=== PATIENT | female | born 1975 | race Caucasian/White ===

== ENCOUNTER 2021-07-28 14:23 | Outpatient (REF) | payer BC, SELFPAY | END 2021-07-28 14:24 | disposition home or self-care (01) | LOC: HO.LNP 14:23 | PROVIDERS: Internal Medicine; Visit Provider Physician Assistant | DX: Z20.822 Contact with and (suspected) exposure to COVID-19 (principal); J06.9 Acute upper respiratory infection, unspecified; J01.00 Acute maxillary sinusitis, unspecified | CPT/HCPCS: 87635; U0003; U0005 ==

== ENCOUNTER 2023-08-25 15:53 | Outpatient (AMB) | payer BC, SELFPAY ==
[2023-08-25 15:59] VITALS: BP 140/96; PULSE 66; O2SAT 99; BMI 39.5
--- NOTE | 2023-08-25 15:59 | MHC.PC.OV ---
Vital Signs 08/25/23 15:59 08/25/23 16:33 Height 5 ft 5 in Weight 237 lb 2 oz BMI 39.5 BP 140/96 H 128/84 Blood Pressure Location Lt brachial Lt brachial Position Sitting Sitting Pulse 66 Pulse Source Pulse Oximeter Pulse Oximetry (%) 99 Oxygen Delivery Method Room Air Intake Visit Reasons: npv-requesting phy Allergies No Known Allergies Allergy (Verified 08/25/23 16:02) Tobacco use date assessed: 08/25/23 Dental Screening Dental Screen Date: 08/25/23 Did you have a dental visit in the last 12 months?: Yes Did you have a dental problem in the last 6 months where you did not have access to dental care?: No Was dental information given to patient?: Patient has dentist HPI npv-requesting phy HPI Details New pt is here for a PE. Will order labs. 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 sees derm for psoriasis. PFSH Medical History Psoriasis Family History Father Substance use disorder Mental health disorder Social History Housing: Condominium Patient Tobacco Use Status: Never used Tobacco e-Cigarette/Vaping Use: Never Used Second Hand Smoke Exposure: No service: No Current occupational status: employed Current occupation: [employer] Current occupational exposures/hazards: No Cognitive needs: No Hearing needs: No Vision needs: No Questionnaire PHQ-9 Over the last 2 weeks, how often have you been bothered by any of the following problems? 1. Little interest or pleasure in doing things: several days 2. Feeling down, depressed, or hopeless: several days 3. Trouble falling or staying asleep, or sleeping too much: more than half the days 4. Feeling tired or having little energy: more than half the days 5. Poor appetite or overeating: not at all 6. Feeling bad about yourself - or that you are a failure or have let yourself or your family down: not at all 7. Trouble concentrating on things, such as reading the newspaper or watching television: not at all 8. Moving or speaking so slowly that other people could have noticed. Or the opposite - being so fidgety or restless that you have been moving around a lot more than usual: not at all 9. Thoughts that you would be better off or of hurting yourself in some way: not at all Total score: 6 Depression Screening Interpretation: Negative Depression Screening Done: Yes Source: Developed by Drs. Sandoval Go, Evelyn Owen, Andrew Mott and colleagues, with an educational carri from [employer]. Thrive Questionnaire Date Thrive assessed: 08/25/23 I am a: Patient What is your living situation today?: I have a steady place to live Within the past 12 months, did the food you bought not last and you didn't have the money to get more?: Never true Within the past 12 months, did you worry whether your food would run out before you got money to buy more?: Never true Do you have trouble paying for medicines?: No Do you have trouble getting transportation to medical appointments?: No Do you have trouble paying your heating and electricity bill?: No Do you have trouble taking care of your child, family member or friend?: No Do you have trouble with day-to-day activities such as bathing, preparing meals, shopping, managing finances, etc.?: No Are you currently unemployed and looking for a job?: No Are you interested in more education?: No Currently or been in a relationship where the following occur: no concerns reported AUDIT C Alcohol Use Questionnaire (AUDIT-C) 1. How often do you have a drink containing alcohol?: 2-4 times a month 2. How many drinks containing alcohol do you have on a typical day when you are drinking?: 1 or 2 3. How often do you have six or more drinks on one occasion?: Never Total Score: 2 Score Reviewed/Action Taken: Yes UCHE-7 AMB Questionnaire UCHE-7 Date UCHE - 7 assessed: 08/25/23 Feeling nervous, anxious, or on edge: 2 = More than half the days Not being able to stop or control worryin = More than half the days Worrying too much about different things: 2 = More than half the days Trouble relaxin = More than half the days Being so restless that it is hard to sit still: 1 = Several days Becoming easily annoyed or irritable: 3 = Nearly every day Feeling afraid as if something awful might happen: 0 = Not at all Total UCHE-7 score (0-4 normal; 5-9 mild; 10-14 moderate; 15-21 severe): 12 Source: Developed by Drs. Sandoval Go, Evelyn Owen, Andrew Mott and colleagues, with an educational carri from [employer]. UCHE-7 Assessment Billing UCHE-7 Assessment Tool: UCHE-7 Assessment 59793 Review of Systems Const Denies chills and Denies fever(s) Eyes Denies blurry vision ENT Denies vertigo, Denies dizziness and Denies sore throat Card Denies chest pain at rest, Denies chest pain with activity, Denies diaphoresis, Denies dyspnea and Denies dyspnea on exertion Resp Denies cough, Denies dyspnea, Denies dyspnea on exertion and Denies wheezing GI Denies abdominal pain, Denies melena, Denies hematochezia, Denies constipation, Denies diarrhea and Denies loose stools Denies hematuria Musc Denies numbness and Denies tingling Skin/Breast Denies lesions Neuro Denies vertigo, Denies dizziness, Denies numbness and Denies tingling Psych Denies anxiety, Denies depression, Denies homicidal ideation, Denies suicidal ideation and Denies other (substance abuse) Aller/Immun Denies wheezing Physical exam (Primary Care) Vital Signs: Last Vital Signs Pulse 66 08/25/23 15:59 BP 140/96 H 08/25/23 15:59 Pulse Ox 99 08/25/23 15:59 Oxygen Delivery Method Room Air 08/25/23 15:59 BMI result Body Mass Index 39.5 Tobacco/Smoking Status: Tobacco use Status Tobacco use date assessed 08/25/23 08/25/23 16:06 Patient Tobacco Use Status Never used Tobacco 08/25/23 16:06 e-Cigarette/Vaping Use Never Used 08/25/23 16:06 Depression Screening Interpretation: Negative Currently or been in a relationship where the following occur: no concerns reported Const General: cooperative Nutritional Appearance: obese Orientation/consciousness: patient oriented x3 HENMT Head: Yes normal to inspection, Yes normocephalic and Yes atraumatic Ears: TM's normal bilaterally Eyes General: appearance normal, both eyes and all related structures Alignment and Position: alignment normal and position normal Neck Neck: Yes normal visual inspection and Yes no lymphadenopathy Thyroid: Thyroid normal Resp Effort & Inspection: normal respiratory effort Auscultation: clear to auscultation bilaterally Cardio Rate: regular rate Rhythm: regular rhythm Heart sounds: S1 normal heart sound present, S2 normal heart sound present and no murmurs GI Palpation (GI): Soft to palpation and nontender Auscultation: normal bowel sounds Skin Rashes: no rashes Neuro General: patient oriented x3, moves all extremities, no focal motor deficits and deep tendon reflexes 2+ bilaterally Romberg Test: Negative Psych Appearance: grossly normal Mental Status: mental status grossly normal Speech and movement: Normal speech and movement present Affect: normal affect Attitude: cooperative Thought process: Normal thought process present Thought content: Normal thought content present Insight: Good insight present (Psych) Judgement: Good judgement present (Psych) Assessment and Plan Assessment & Plan (1) Physical exam: Code(s): Z00.00 - Encounter for general adult medical examination without abnormal findings (2) Screening for cervical cancer: Code(s): Z12.4 - Encounter for screening for malignant neoplasm of cervix Plan The patient agreed to the use of a registered medical assistant for this encounter. Scribed for TONY Pinto-KAYLAN by Kassandra Craft registered medical assistant, on 08/25/2023 at 16:10 EST Orders: Orders Complete Blood Count Auto Diff Today Z00.00 - Encounter for general adult medical examination without abnormal findings MM screening mammo BI Today Z12.31 - Encounter for screening mammogram for malignant neoplasm of breast Comprehensive Clarissa. Panel Fast Today Z00.00 - Encounter for general adult medical examination without abnormal findings TSH reflex Free T4 Today Z00.00 - Encounter for general adult medical examination without abnormal findings UA CC w/rflx Micro + Cult Today Z00.00 - Encounter for general adult medical examination without abnormal findings Lipid Panel Today Z00.00 - Encounter for general adult medical examination without abnormal findings Referrals DIPPER FISH Referral Z12.4 - Encounter for screening for malignant neoplasm of cervix Coding Level of Care Code New Pt Prev Care 40-64y(15066) Diagnoses Physical exam Z00.00 Screening for cervical cancer Z12.4 Additional Codes UCHE-7 Assessment Billing - UCHE-7 Assessment Tool: UCHE-7 Assessment 57774 ([id number])
[2023-08-25 16:33] VITALS: BP 128/84
== END 2023-08-25 16:47 | disposition home or self-care (01) ==
PROVIDERS: Visit Provider Nurse Practitioner Family
DX: Z00.00 Encounter for general adult medical examination without abnormal findings (principal); Z12.4 Encounter for screening for malignant neoplasm of cervix
CPT/HCPCS: 99386

== ENCOUNTER 2023-11-23 16:28 | Outpatient (AMB) | payer BC, SELFPAY ==
--- NOTE | 2023-11-23 16:30 | A.OFFPC_ITS ---
Vital Signs 11/23/23 16:34 Height 5 ft 5 in Weight 238 lb BMI 39.6 BP 120/90 H Blood Pressure Location Lt brachial Position Sitting Pulse 68 Pulse Source Pulse Oximeter Pulse Oximetry (%) 98 Oxygen Delivery Method Room Air Intake Visit Reasons: Cyst on inner left thigh/Referral to Gen Surg Intake Note: Patient here for cyst on inner left thigh that she went to urgent care. Allergies No Known Allergies Allergy (Verified 11/23/23 16:37) Medication List - Last Reconciled 11/23/23 by BRENDAN Amin sulfamethoxazole-trimethoprim 800-160 mg (Bactrim DS) 1 tab PO BID 5 days Tobacco use date assessed: 11/23/23 Dental Screening Dental Screen Date: 11/23/23 Did you have a dental visit in the last 12 months?: Yes Did you have a dental problem in the last 6 months where you did not have access to dental care?: No Was dental information given to patient?: Patient has dentist HPI Cyst on inner left thigh/Referral to Gen Surg HPI Details Patient reports having a chronic left inner thigh cyst. She reports 2 weeks ago on her left inner thigh she developed a large, tender, warm to touch, cyst. She reports insert to drain after getting out of the shower, she went to an urgent care locally, given doxycycline. Patient reports taking 1 day of the doxycycline and stop it because it made her sick. She reports now, the cyst is much smaller and not as tender. Pt did have a fever approx 1.5 weeks ago,. no longer, no CP, no resp distress, dizziness, or blurred vision PFSH Medical History Psoriasis Family History Father Substance use disorder Mental health disorder Social History Housing: Condominium Patient Tobacco Use Status: Never used Tobacco e-Cigarette/Vaping Use: Never Used Second Hand Smoke Exposure: No service: No Current occupational status: employed Current occupation: [employer] Current occupational exposures/hazards: No Cognitive needs: No Hearing needs: No Vision needs: No Questionnaire PHQ-9 Over the last 2 weeks, how often have you been bothered by any of the following problems? 1. Little interest or pleasure in doing things: not at all 2. Feeling down, depressed, or hopeless: not at all 3. Trouble falling or staying asleep, or sleeping too much: not at all 4. Feeling tired or having little energy: not at all 5. Poor appetite or overeating: not at all 6. Feeling bad about yourself - or that you are a failure or have let yourself or your family down: not at all 7. Trouble concentrating on things, such as reading the newspaper or watching television: not at all 8. Moving or speaking so slowly that other people could have noticed. Or the opposite - being so fidgety or restless that you have been moving around a lot more than usual: not at all 9. Thoughts that you would be better off or of hurting yourself in some way: not at all Total score: 0 Depression Screening Interpretation: Negative Depression Screening Done: Yes [id number] - PHQ-9 Billing: Yes Source: Developed by Drs. Sandoval Go, Evelyn Owen, Andrew Mott and colleagues, with an educational carri from [employer]. Thrive Questionnaire Date Thrive assessed: 11/23/23 I am a: Patient What is your living situation today?: I have a steady place to live Within the past 12 months, did the food you bought not last and you didn't have the money to get more?: Never true Within the past 12 months, did you worry whether your food would run out before you got money to buy more?: Never true Do you have trouble paying for medicines?: No Do you have trouble getting transportation to medical appointments?: No Do you have trouble paying your heating and electricity bill?: No Do you have trouble taking care of your child, family member or friend?: No Do you have trouble with day-to-day activities such as bathing, preparing meals, shopping, managing finances, etc.?: No Are you currently unemployed and looking for a job?: No Are you interested in more education?: No UCHE-7 AMB Questionnaire UCHE-7 Date UCHE - 7 assessed: 11/23/23 Feeling nervous, anxious, or on edge: 0 = Not at all Not being able to stop or control worryin = Not at all Worrying too much about different things: 0 = Not at all Trouble relaxin = Not at all Being so restless that it is hard to sit still: 0 = Not at all Becoming easily annoyed or irritable: 0 = Not at all Feeling afraid as if something awful might happen: 0 = Not at all Total UCHE-7 score (0-4 normal; 5-9 mild; 10-14 moderate; 15-21 severe): 0 Source: Developed by Drs. Sandoval Go, Evelyn Owen, Andrew Mott and colleagues, with an educational carri from [employer]. UCHE-7 Assessment Billing UCHE-7 Assessment Tool: UCHE-7 Assessment [id number] Review of Systems Const Reports as per HPI Physical exam (Primary Care) Vital Signs: Last Vital Signs Pulse 68 11/23/23 16:34 BP 120/90 H 11/23/23 16:34 Pulse Ox 98 11/23/23 16:34 Oxygen Delivery Method Room Air 11/23/23 16:34 BMI result Body Mass Index 39.6 Tobacco/Smoking Status: Tobacco use Status Tobacco use date assessed 11/23/23 11/23/23 16:39 Patient Tobacco Use Status Never used Tobacco 11/23/23 16:31 e-Cigarette/Vaping Use Never Used 11/23/23 16:31 Depression Screening Interpretation: Negative Thrive Assessment: Date of Thrive Assessment Date Thrive assessed 08/25/23 11/23/23 16:31 Const General: cooperative Nutritional Appearance: obese Orientation/consciousness: patient oriented x3 Resp Auscultation: clear to auscultation bilaterally Cardio Rate: regular rate Rhythm: regular rhythm Heart sounds: S1 normal heart sound present, S2 normal heart sound present and no murmurs Skin Other: (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 Neuro General: patient oriented x3 Psych Appearance: grossly normal Mental Status: mental status grossly normal Speech and movement: Normal speech and movement present Affect: normal affect Attitude: cooperative Thought process: Normal thought process present Thought content: Normal thought content present Insight: Good insight present (Psych) Judgement: Good judgement present (Psych) Assessment and Plan Assessment & Plan (1) Abscess: Code(s): L02.91 - Cutaneous abscess, unspecified Medications: New sulfamethoxazole-trimethoprim 800-160 mg (Bactrim DS) 1 tab PO BID 5 days 10 tabs 0RF Coding Level of Care Code Est Pt Level 3 (17562) Diagnoses Abscess L02.91 Additional Codes UCHE-7 Assessment Billing - UCHE-7 Assessment Tool: UCHE-7 Assessment [id number] ([id number])
[2023-11-23 16:34] VITALS: BP 120/90; PULSE 68; O2SAT 98; BMI 39.6
== END 2023-11-23 17:00 | disposition home or self-care (01) ==
PROVIDERS: PCP Nurse Practitioner Family; Visit Provider Nurse Practitioner Family
DX: L02.91 Cutaneous abscess, unspecified (principal)
CPT/HCPCS: 99213

== ENCOUNTER 2024-02-27 13:58 | Outpatient (AMB) | payer BC, SELFPAY ==
--- NOTE | 2024-02-27 14:02 | A.OFFPC_ITS ---
Vital Signs 02/27/24 14:04 Height 5 ft 5 in Weight 236 lb BMI 39.3 BP 120/82 Blood Pressure Location Lt brachial Position Sitting Pulse 84 Pulse Source Pulse Oximeter Pulse Oximetry (%) 98 Oxygen Delivery Method Room Air Intake Visit Reasons: 6 month follow up Intake Note: Patient here to discuss possible sinus infection, pre menopause symptoms. Allergies No Known Allergies Allergy (Verified 02/27/24 16:07) Medication List - Last Reconciled 02/27/24 by TONY Amin-KAYLAN amoxicillin-pot clavulanate 875-125 mg 1 tab PO BID 10 days Tobacco use date assessed: 11/23/23 Dental Screening Dental Screen Date: 11/23/23 HPI 6 month follow up HPI Details sinusitis since 1.5 weeks now. Pt reports cough, with ear pressure, denies any fevers, chills, N/V, blurred vision. #2 abnormal vag bleeding, peroids sometimes come (though very irregular), more heavy than usual. She has a upcoming founder chairman and chief creative officer appt in [place], though has seen someone recently who check for only anemia (which appeared neg). A pelvic US was also performed, pt showed me results from her phone, does not appear to be any abnormalities. Pt will call her newly scheduled founder chairman and chief creative officer to get in sooner than Aug. I will recheck a CBC and also order a FSH, LH, and estradiol. PFSH Medical History Psoriasis Family History Father Substance use disorder Mental health disorder Social History Housing: Condominium Patient Tobacco Use Status: Never used Tobacco e-Cigarette/Vaping Use: Never Used Second Hand Smoke Exposure: No service: No Current occupational status: employed Current occupation: [employer] Current occupational exposures/hazards: No Cognitive needs: No Hearing needs: No Vision needs: No Questionnaire Thrive Questionnaire Date Thrive assessed: 11/23/23 UCHE-7 AMB Questionnaire UCHE-7 Date UCHE - 7 assessed: 11/23/23 Source: Developed by Drs. Sandoval Go, EvelynAndrew Verma and colleagues, with an educational carri from [employer]. Physical exam (Primary Care) Vital Signs: Last Vital Signs Pulse 84 02/27/24 14:04 BP 120/82 02/27/24 14:04 Pulse Ox 98 02/27/24 14:04 Oxygen Delivery Method Room Air 02/27/24 14:04 BMI result Body Mass Index 39.3 Tobacco/Smoking Status: Tobacco use Status Tobacco use date assessed 11/23/23 02/27/24 14:03 Patient Tobacco Use Status Never used Tobacco 02/27/24 14:03 e-Cigarette/Vaping Use Never Used 02/27/24 14:03 Thrive Assessment: Date of Thrive Assessment Date Thrive assessed 11/23/23 02/27/24 14:03 Resp Effort & Inspection: normal respiratory effort Auscultation: clear to auscultation bilaterally Cardio Rate: regular rate Rhythm: regular rhythm Heart sounds: S1 normal heart sound present, S2 normal heart sound present and no murmurs Assessment and Plan Assessment & Plan (1) Irregular menses: Code(s): N92.6 - Irregular menstruation, unspecified Orders: Orders Follicle Stimulating Hormone Today N92.6 - Irregular menstruation, unspecified Lutenizing Hormone Today N92.6 - Irregular menstruation, unspecified Estrogen Today N92.6 - Irregular menstruation, unspecified Estradiol Ultra Sensitive Today N92.6 - Irregular menstruation, unspecified Medications: New amoxicillin-pot clavulanate 875-125 mg 1 tab PO BID 10 days 20 tabs 0RF Coding Level of Care Code Est Pt Level 3 (40071) Diagnoses Irregular menses N92.6
[2024-02-27 14:04] VITALS: BP 120/82; PULSE 84; O2SAT 98; BMI 39.3
== END 2024-02-27 16:03 | disposition home or self-care (01) ==
PROVIDERS: PCP Nurse Practitioner Family; Visit Provider Nurse Practitioner Family
DX: N92.6 Irregular menstruation, unspecified (principal)
CPT/HCPCS: 99213

== ENCOUNTER 2024-05-24 10:11 | Outpatient (AMB) | payer BC, SELFPAY ==
[2024-05-24 10:14] VITALS: BP 134/88; BMI 39.6
--- NOTE | 2024-05-24 10:14 | A.OFFVIS_ITS ---
Vital Signs 05/24/24 10:14 Height 5 ft 5 in Weight 238 lb BMI 39.6 BP 134/88 Intake Visit Reasons: New patient Annual Intake Note: Last pap long time ago per NEPA 2011, EMB 2019 No mammo Patient wants to discuss heavy bleeding Entry Level Automotive Technician: Entry Level Automotive Technician Present (Mary) Allergies No Known Allergies Allergy (Verified 05/24/24 10:16) Is last menstrual period known: Yes (spotted two weeks before) Last menstrual period: 05/19/24 HPI Comments Details: She is a premenopausal woman presenting for new patient annual examination. She defers her annual exam today due to her heavy menstrual bleeding. She reports onset of irregular bleeding since early 2019. Records from [facility] are not available for her visit today. Her cycles have skipped and also then prolonged up to 53 +days. She had a progesterone IUD inserted in 2022 which was removed within 3 months due to her side effects which include hives, wheezing, skin changes including psoriasis, edema and weight gain. Following the removal of the IUD she had seen a Director Of Medical Review provider and was told she was having perimenopausal changes, was placed on different diet changes including elimination of gluten, additionally added tea's to help her immune system/hormones improve. She reports a previous endometrial biopsy (2019) was negative. She denies any pelvic pain. She was last seen this year in the spring time she reports and was told by the provider to just watch the bleeding for now. She has never had a mammogram. [facility] Medical History (Updated 05/24/24 @ 11:46 by Ce Garcia CNM) Psoriasis Surgical History (Updated 05/24/24 @ 10:19 by SAMIRA Vaughan) Hx of tonsillectomy Hx of wisdom tooth extraction Family History (Updated 05/24/24 @ 10:19 by SAMIRA Vaughan) Father Substance use disorder Mental health disorder Maternal Aunt Ovarian cancer Social History Housing: Condominium Patient Tobacco Use Status: Never used Tobacco e-Cigarette/Vaping Use: Never Used Second Hand Smoke Exposure: No service: No Current occupational status: employed Current occupation: [employer] Current occupational exposures/hazards: No Cognitive needs: No Hearing needs: No Vision needs: No Female Reproductive History Menstrual Duration of menses: >10 days Date of last menstrual period: 05/19/24 Total pregnancies: 3 Full term: 1 Number of Living Children: 1 Ab spontaneous: 2 Review of Systems Const All systems reviewed & are unremarkable except as noted in HPI and below Reports as per HPI Eyes Reports no additional complaints ENT Reports no additional complaints Card Reports no additional complaints Resp Reports no additional complaints GI Reports as per HPI and Reports no additional complaints Reports as per HPI Musc Reports no additional complaints Skin/Breast Reports as per HPI Neuro Reports no additional complaints Psych Reports no additional complaints Endo Reports no additional complaints Jayme/Lymph Reports no additional complaints Aller/Immun Reports no additional complaints Physical Exam Vital Signs: Last Vital Signs BP 134/88 05/24/24 10:14 BMI result Body Mass Index 39.6 Const General: cooperative, healthy appearing, no acute distress, well developed and alert Orientation/consciousness: patient oriented x3 Neuro General: patient oriented x3 Cognition (Neuro): normal cognition Psych Appearance: well kempt Attitude: cooperative Thought process: Normal thought process present Assessment & Plan Assessment & Plan (1) Abnormal uterine bleeding (AUB): Code(s): N93.9 - Abnormal uterine and vaginal bleeding, unspecified Category: Medical Plan Discussed: Release records to [facility] for all registered nurse surgical services notes including pathology, ultrasound, labs. Workup for abnormal uterine bleeding to include ultrasound patient reports recently done, lab work-patient agrees to go and have her labs done that were ordered by her primary care and require her to be fasting. Advised if periods are heavier prolonged she feels any lightheadedness, dizziness, shortness of breath to seek medical emergency care at an ED im mediately. Encouraged good hydration. Use of ibuprofen and Tylenol along with a heating pad reviewed. Consider treatment options once evaluation is complete to include hormones, uterine ablation, or hysterectomy. Due to the hives with the progesterone IUD hormones may not be an option, review of medical records requested. Patient verbalizes understanding and agrees to the plan of care. She was given opportunity to ask questions and all questions were answered to the best of my ability. This note is constructed using voice recognition software. While every effort has been made to ensure accuracy, guest relations associate errors may have been included. Coding Level of Care Code New Pt Level 3 (22603) Diagnoses Abnormal uterine bleeding (AUB) N93.9
== END 2024-05-24 10:53 | disposition home or self-care (01) ==
LOC: HO.HWS 10:11
PROVIDERS: PCP Nurse Practitioner Family; Visit Provider Advanced Practice Midwife
DX: N93.9 Abnormal uterine and vaginal bleeding, unspecified (principal)
CPT/HCPCS: 99203

== ENCOUNTER → 2024-05-24 10:11 | Outpatient (BNVA) | payer BC, SELFPAY | PROVIDERS: PCP Nurse Practitioner Family; Visit Provider Advanced Practice Midwife ==

== ENCOUNTER 2025-02-12 08:03 | Outpatient (AMB) | payer BC, SELFPAY ==
[2025-02-12 08:05] VITALS: BP 150/100; PULSE 68; TEMP 36.8; O2SAT 98
--- NOTE | 2025-02-12 08:05 | AM.OFFWIN_ITS ---
Intake Vital Signs 02/12/25 08:05 02/12/25 08:26 Weight 244 lb BP 150/100 H 150/96 H Blood Pressure Location Rt brachial Rt brachial Position Sitting Sitting Pulse 68 Pulse Source Pulse Oximeter Temp 98.2 F Temp Source Oral Pulse Oximetry (%) 98 Oxygen Delivery Method Room Air Intake Visit Reasons: EP-cough, wheezing, mucus, headaches Intake Note: Patient here for cough, wheezing and headaches that has been present for over 1 week and was diagnosed with pneumonia at a different urgent care but is still not feeling well. . Patient Tobacco Use Status: Never used Tobacco Allergies No Known Allergies Allergy (Verified 02/12/25 08:20) Medication List - Last Reconciled 02/12/25 by BRENDAN Hyman No Known Home Meds Do you need a note to return to daycare/school/sports/work: Yes HPI HPI Comments History of Present Illness Details History - The patient is a 49 year old female pr esenting with persistent symptoms of pneumonia, including coughing and wheezing. - Community-acquired pneumonia was diagn osed at another urgent care center by chest X-ray, and treatment included oral Prednisone 20 mg daily and Levofloxacin 500 mg daily, both for a 5-day course. - The patient completed the antibiotic r egimen yesterday with improvement in symptoms; however cont w/ cough and feeling persistent coughing - No consistent fever is present, but ep isodes do reach 100?F and improve following Tylenol use. Intermittent fever last noted the day before this visit. - Severe sinus infection and acute otiti s media also diagnosed, accompanied by a history of blackened ear indicating possible infection. 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 Reports difficulty in reducing workload. - Blood pressure reads high during visit s, potentially exacerbated by anxiety and exacerbated by decongestant usage prior to this visit. She is not on anti- htn, admits white coat HTN. Denies cardiac sx Physical Exam General: Awake, alert. No apparent distress. Eyes: Sclera and conjunctiva clear bilaterally Cardiovascular: Regular rate and rhythm, blood pressure noted to be 150/96 Respiratory: Clear to auscultation bilaterally, dry cough occassional w/o distress Discussion Notes During the consultation, I confirmed the patient's concerns regarding persistent symptoms of pneumonia. I explained the typical course of pneumonia recovery. We discussed that resting as much as possible is crucial but understood her work constraints. I advised the continued use of the prescribed inhaler to reduce lung inflammation. Emphasis was placed on the importance of monitoring symptoms such as persistent cough with drenching night sweats or unrelenting fever. I informed the patient that her high blood pressure reading is likely secondary to her illness and stress rather than a separate chronic condition, but will need follow-up once recovered. The patient was advised to avoid decongestants due to their contribution to hypertension. I addressed the situation surrounding her work responsibilities and acknowledged her need for further rest, issuing a work excuse until Tuesday. A blood pressure recheck was recommended when feeling better, coordinating with our nurse navigator if elevations persist. Consent was obtained for the plan, including scheduling follow-up appointments as necessary. Assessment and Plan 1. Community-Acquired Pneumonia: The nate colmenares was diagnosed with community- acquired pneumonia confirmed by chest X-ray, and treatment with Levofloxacin was completed. Persistent symptoms include cough. I advise continuing inhaler use. Rest is necessary, though challenging due to work constraints. 2. Elevated BP: Temporarily elevated angelia dings noted, likely attributed to current illness and stress. Investigation and management will focus on determining persistence post-recovery. Patient Instructions - Continue using your prescribed inhaler as directed. - Avoid decongestants given their effect on blood pressure. - Rest as much as possible and monitor f or increased symptoms. - Use Tylenol for any fever if needed. - Contact healthcare provider if coughin g worsens, fever persists, or if night sweats occur. - Follow up for blood pressure check onc health improves. - Stay out of work until cleared to retu rn on Tuesday. - Nurse mariano BP recheck in 2 weeks. Consent Patient was informed and verbally consented to the use of an ambient scribe for clinic note documentation during this visit. Total time spent caring for the patient today was 30 minutes. This includes time spent before the visit reviewing the chart, time spent during the visit, and time spent after the visit on documentation, reviewing laboratory results, diagnostic imaging, medications, performing a medically necessary evaluation, counseling on diagnoses, care coordination, ordering appropriate tests, ordering appropriate medications, review of tests performed by other providers, reporting test results with the patient, communication with other healthcare providers. [facility] Medical History (Updated 02/12/25 @ 08:38 by Elsy Solo, [facility]) Psoriasis Surgical History (Updated 05/24/24 @ 10:19 by SAMIRA Vaughan) Hx of tonsillectomy Hx of wisdom tooth extraction Family History (Updated 05/24/24 @ 10:19 by SAMIRA Vaughan) Father Substance use disorder Mental health disorder Maternal Aunt Ovarian cancer Social History Housing: Condominium Patient Tobacco Use Status: Never used Tobacco e-Cigarette/Vaping Use: Never Used Second Hand Smoke Exposure: No service: No Current occupational status: employed Current occupation: [employer] Current occupational exposures/hazards: No Cognitive needs: No Hearing needs: No Vision needs: No Physical Exam Vital Signs: Last Vital Signs Temp 98.2 F 02/12/25 08:05 Pulse 68 02/12/25 08:05 BP 150/100 H 02/12/25 08:05 Pulse Ox 98 02/12/25 08:05 Oxygen Delivery Method Room Air 02/12/25 08:05 Assessment & Plan Assessment & Plan (1) Pneumonia: Code(s): J18.9 - Pneumonia, unspecified organism Qualifiers: Laterality: unspecified laterality Lung location: unspecified part of lung Pneumonia type: due to unspecified organism Qualified Code(s): J18.9 - Pneumonia, unspecified organism (2) Elevated blood pressure reading without diagnosis of hypertension: Code(s): R03.0 - Elevated blood-pressure reading, without diagnosis of hypertension Plan . Coding Level of Care Code Est Pt Level 4 (46926) Diagnoses Pneumonia due to infectious organism, unspecified laterality, unspecified part of lung J18.9 Laterality: unspecified laterality Lung location: unspecified part of lung Pneumonia type: due to unspecified organism Elevated blood pressure reading without diagnosis of hypertension R03.0
[2025-02-12 08:26] VITALS: BP 150/96
== END 2025-02-12 08:43 | disposition home or self-care (01) ==
PROVIDERS: PCP Nurse Practitioner Family; Visit Provider Nurse Practitioner Family
DX: J18.9 Pneumonia, unspecified organism (principal); R03.0 Elevated blood-pressure reading, without diagnosis of hypertension

== ENCOUNTER 2025-08-27 13:56 | Outpatient (REF) | payer BC, SELFPAY ==
[2025-08-27 16:15] LABS: MANUAL DIFF FLAG NO
[2025-08-27 16:18] LABS: Appearance Urine Clear; Glucose Urine UA Negative (Negative); PH 6.0 (5.0-9.0); Specific Gravity - Urine <= 1.005 (1.005-1.025)
[2025-08-27 16:37] LABS: Hematocrit 39.1 % (37.0-47.0); Hemoglobin 12.6 g/dl (12.0-16.0); Imm Gran Abs Auto 0.03 X10*3/uL (0.00-0.03); Imm Gran Pct Auto 0.3 % (0.0-0.4); Lymphocytes Absolute Auto 2.7 X10*3/uL (1.2-4.9); Mean Corpuscular HGB Conc 32.2 g/dl (31.0-35.0); Mean Corpuscular Hemoglobin 28.7 pg (27.0-33.0); Mean Corpuscular Volume 89.1 fL (80.0-98.0); NRBC Abs Auto 0.000 X10*3/uL (0.0-0.012); NRBC Pct Auto 0.0 /100WBC (0.0-0.2); Platelet Count 296 X10*3/uL (160-400); Red Blood Count 4.39 X10*6/uL (4.20-5.50); White Blood Count 10.1 X10*3/uL (4.8-10.8)
--- OUTSIDE RECORDS SUMMARY | 2025-08-27 16:55 | XMS_ITS | Clinical Summary ---
Author Organization [facility] Address [address] [facility] [address] [place] [phone] Phone Care Team Providers Care Statistical Machine Servicer Name Role Phone Anuja Meeks MD Primary Care Provider Medications No known medications Active Problems No known active problems Social History Tobacco Use Types Packs/Day Years Used Date Smoking Tobacco: Never Assessed Education Answer Date Recorded Are you interested in more education? Not on rodolof e 04/14/2023 Are you concerned about learning? Not on file 04/14/2023 No 04/14/2023 No 04/14/2023 Digital Access Answer Date Recorded No 04/14/2023 No 04/14/2023 Reliable internet access at home? Not on file 04/14/2023 Device with a working camera? Not on file Comments Unknown Sex and Gender Information Value Date Recorded Sex Assigned at Not on file Legal Sex Female 8:37 AM EDT Gender Identity Not on file Sexual Orientation Not on file Plan of Treatment Health Maintenance Due Date Last Done Comments LIPID PANEL 1976 DEPRESSION SCREENING 1988 SMOKING Hx and SMOKELESS TOBACCO SCREENING 1989 HEPATITIS C SCREENING 1994 HIV ONE-TIME SCREENING (18-6 5 YEARS) 1994 PAP SMEAR 1997 MAMMOGRAM 2016 Adult Td,Tdap Booster 07/10/2019 07/10/2009 COLOGUARD 2021 COLONOSCOPY 2021 COLORECTAL CANCER SCREENING 2021 FIT TEST 2021 FOBT 2021 SIGMOIDOSCOPY 2021 VIRTUAL COLONOSCOPY 2021 INFLUENZA VACCINE (#1) 2025 1, 08/03/2009, 09/20/2006 COVID-19 VACCINE (2024-2 6 season) 2025 03/14/2021, 02/21/2021 HEPATITIS A VACCINES Aged Out No long er eligible based on patient's age to complete this topic HIB VACCINES Aged Out No longer eligi ble based on patient's age to complete this topic MENINGOCOCCAL VACCINES (ACWY) Aged Out No longer eligible based on patient's age to complete this topic MENINGOCOCCAL VACCINES (B) Aged Out N o longer eligible based on patient's age to complete this topic PNEUMOCOCCAL VACCINES (0-49 years) Aged Out No longer eligible b ased on patient's age to complete this topic Medical Devices Not on file Insurance [facility] [place] [address] [place] [address] [place] [address] [facility] Care Teams Statistical Machine Servicer Relationship Specialty Start Date End Date Anuja Meeks MD [address] [facility] [address] [place] [phone] PCP - General Internal Medicine 04/14/23 Additional Source Comments The information contained in this document represents components of the legal health record. It is not the complete legal health record.[facility]
== END 2025-08-27 13:57 | disposition home or self-care (01) ==
LOC: HO.HMGCLDS 13:56
PROVIDERS: PCP Nurse Practitioner Family; Visit Provider Nurse Practitioner Family
DX: Z00.00 Encounter for general adult medical examination without abnormal findings (principal); E55.9 Vitamin D deficiency, unspecified; Z13.29 Encounter for screening for other suspected endocrine disorder
CPT/HCPCS: 36415; 81003; 82306; 84443; 85025

== ENCOUNTER 2025-08-28 15:15 | Outpatient (AMB) | payer BC, SELFPAY ==
[2025-08-28 15:19] VITALS: PULSE 72; TEMP 36.8; O2SAT 98; BMI 40.8
--- NOTE | 2025-08-28 15:19 | AM.OFFWIN_ITS ---
Intake Vital Signs 08/28/25 15:19 Height 5 ft 5 in Weight 245 lb BMI 40.8 Pulse 72 Pulse Source Pulse Oximeter Temp 98.3 F Temp Source Oral Pulse Oximetry (%) 98 Oxygen Delivery Method Room Air Intake Visit Reasons: EP Ear pain Intake Note: pt presents with ongoing bilateral ear pain/infection x1 mo. a month ago- abx Augmentin. returned to - abx zpak, 5 days ago lost hearing in LT ear and developed yeast type fluid. back to -doxycycline (nausea)-they called in cipro (currently on day 5), zyrtec, flonase and prednisone (didn't take) Patient Tobacco Use Status: Never used Tobacco Allergies doxycycline Adverse Reaction (Mild, Verified 08/28/25 15:24) Nausea Do you need a note to return to daycare/school/sports/work: No HPI HPI Comments History of Present Illness Details History - The patient is a 50-year-old female pr esenting with persistent ear infection symptoms and sinus issues. - The patient has been experiencing ear infection symptoms for over a month, initially treated with Augmentin for 10 days without improvement. - The patient was subsequently prescribe d a Z-Jerry, which provided slight relief, but symptoms recurred, leading to a prescription of doxycycline, which caused severe nausea. - The patient was then switched to cipro floxacin 2 days ago. - Today, the patient reports sinus pain and pressure, with nasal congestion and popping sounds in the ear upon swallowing. - The patient has been using Flonase twi ce daily, which provides some relief. 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 - She denies fevers, chills, cough, adrien estion or shortness of breath - She endorses extreme fatigue. Physical Exam General: Cooperative, healthy appearing, comfortable and no acute distress Orientation/consciousness: Patient oriented x3 Limitations: No limitations Head: Normal to inspection Ears: Hearing grossly normal bilaterally, external ears normal. EAC left with tenderness and a small pimple, EAC right is normal, TM's normal bilaterally Nose: Normal external nose present, Normal nares present and No nasal discharge present Face and sinus: Normal facial exam and Yes sinuses nontender Mouth: Normal oral and palatal mucosa present and moist mucous membranes Throat: Yes tonsils normal, Yes uvula midline. Posterior oropharynx erythema, no exudates Eyes: Appearance normal, both eyes and all related structures Neck: Normal visual inspection, full ROM Respiratory: Normal respiratory effort, able to speak in complete sentences Skin: No rashes or lesions noted Neuro: Patient oriented x3 Extremities: Normal to inspection and Yes no clubbing, cyanosis or edema Had Patt Li PA-C examine ear and she agrees with my assessment. Review of Systems - ENT: Reports ear pain, sinus pressure, and nasal congestion. Denies cough, congestion, or fever. - General: Reports fatigue. Denies short ness of breath or sneezing. All systems reviewed and are unremarkable except as noted in HPI [facility] Medical History (Updated 08/28/25 @ 16:00 by Amanda Feng PA-C) Psoriasis Surgical History (Updated 05/24/24 @ 10:19 by SAMIRA Vaughan) Hx of tonsillectomy Hx of wisdom tooth extraction Family History (Updated 05/24/24 @ 10:19 by SAMIRA Vaughan) Father Substance use disorder Mental health disorder Maternal Aunt Ovarian cancer Social History Housing: Condominium Patient Tobacco Use Status: Never used Tobacco e-Cigarette/Vaping Use: Never Used Second Hand Smoke Exposure: No service: No Current occupational status: employed Current occupation: [employer] Current occupational exposures/hazards: No Cognitive needs: No Hearing needs: No Vision needs: No Physical Exam Vital Signs: Last Vital Signs Temp 98.3 F 08/28/25 15:19 Pulse 72 08/28/25 15:19 Pulse Ox 98 08/28/25 15:19 Oxygen Delivery Method Room Air 08/28/25 15:19 BMI result Body Mass Index 40.8 Assessment & Plan Assessment & Plan (1) Otalgia, left ear: Code(s): H92.02 - Otalgia, left ear Plan: Plan Patient was informed and verbally consented to the use of an ambient scribe for clinic note documentation during this visit. - VSS, pt well appearing and PE remarkable for pimple and tenderness of EAC left. TMs normal with no evidence of infection. - Discontinue ciprofloxacin as there is no current evidence of bacterial infection. - Prescribe steroid ear drops to reduce inflammation in the ear canal. - Continue using Flonase nasal spray twice daily to alleviate sinus congestion. - Prescribe a short course of oral prednisone 20mg x 5 days to reduce sinus inflammation and alleviate pain. - Conduct a full viral panel to identify any underlying viral infection. - Advise rest and symptomatic treatment as needed. Orders: Orders Resp Pathogen Panel - [facility] Today J06.9 - Acute upper respiratory infection, unspecified Medications: New prednisone 20 mg PO DAILY 5 tabs 0RF hydrocortisone-acetic acid 1-2 % 4 drps otic (ear) left TID 10 mL 0RF 5 days Coding Level of Care Code Est Pt Level 3 (87906) Diagnoses Otalgia, left ear H92.02
--- OUTSIDE RECORDS SUMMARY | 2025-08-28 18:49 | XMS_ITS | Clinical Summary ---
Author Organization [facility] Address [address] [facility] [address] [place] [id number] Phone Care Team Providers Care Vest Tailor Name Role Phone Anuja Meeks MD Primary Care Provider Medications No known medications Active Problems No known active problems Social History Tobacco Use Types Packs/Day Years Used Date Smoking Tobacco: Never Assessed Education Answer Date Recorded Are you interested in more education? Not on rodolfo e 04/14/2023 Are you concerned about learning? [...] topic Medical Devices Not on file Insurance [facility] [address] [address] [place] [address] [facility] Care Teams Vest Tailor Relationship Specialty Start Date End Date Anuja Meeks MD [address] [facility] [address] [place] [phone] PCP - General Internal Medicine 04/14/23 Additional Source Comments The information contained in this document represents components of the legal health record. It is not the complete legal health record.[facility]
--- OUTSIDE RECORDS SUMMARY | 2025-08-28 18:49 | XMS_ITS ---
Author Name [facility] Organization Unknown Care Team Organization Name Specialty Phone Email Start Date End Da te [facility] Anuja Farrukhanti Primary [facility] 11/22/2022 07/02/20 [facility] Termed, PROVIDER Primary Care 09/21/202206/14
== END 2025-08-28 16:07 | disposition home or self-care (01) ==
PROVIDERS: PCP Nurse Practitioner Family; Visit Provider Physician Assistant
DX: H92.02 Otalgia, left ear (principal)

== ENCOUNTER 2025-08-28 15:15 | Outpatient (REF) | payer BC, SELFPAY ==
[2025-08-29 11:40] LABS: Chlamydia pneumoniae PCR Not Detected (Not Detect.); Coronavirus 229E PCR Not Detected (Not Detect.); Coronavirus HKU1 PCR Not Detected (Not Detect.); Coronavirus NL63 PCR Not Detected (Not Detect.); Coronavirus OC43 PCR Not Detected (Not Detect.); RSV PCR Not Detected (Not Detect.); Rhino/Enterovirus PCR Detected (Not Detect.)
[2025-08-29 11:48] LABS: Influenza A H1 PCR Not Detected (Not Detect.); Influenza A H1-2009 PCR Not Detected (Not Detect.); Influenza A H3 PCR Not Detected (Not Detect.); SARS-CoV-2 PCR Not Detected (Not Detect.)
== END 2025-08-28 15:16 | disposition home or self-care (01) ==
LOC: HO.LAB 15:15
PROVIDERS: Physician Assistant; PCP Nurse Practitioner Family
DX: H92.02 Otalgia, left ear (principal); J06.9 Acute upper respiratory infection, unspecified; J34.89 Other specified disorders of nose and nasal sinuses; R09.81 Nasal congestion
CPT/HCPCS: 87633

== ENCOUNTER 2025-08-29 06:37 | Outpatient (AMB) | payer BC, SELFPAY ==
--- NOTE | 2025-08-29 07:37 | A.OFFPC_ITS ---
Intake Visit Reasons: discuss lab results Allergies doxycycline Adverse Reaction (Mild, Verified 08/28/25 15:24) Nausea Medication List - Last Reconciled 08/29/25 by Jose Anne [facility] cetirizine 10 mg PO DAILY ciprofloxacin HCl 500 mg PO BID fluticasone propionate 50 mcg/actuation 2 sprays intranasal DAILY hydrocortisone-acetic acid 1-2 % 4 drps otic (ear) left TID 5 days ondansetron 4 mg PO BID prednisone 20 mg PO DAILY Tobacco use date assessed: 11/23/23 Dental Screening Dental Screen Date: 11/23/23 HPI discuss lab results HPI Details History of Present Illness The patient is a 50-year-old female presenting for a telehealth follow-up to discuss recent laboratory results and blood pressure management. She reports a history of white coat syndrome, with elevated blood pressure readings in clinical settings but normal readings at home, typically in the 120s to 130s over 70s to low 80s. She denies any chest pain, shortness of breath, dizziness, or headaches. The patient is actively working on weight management, having lost about 8 pounds through dietary adjustments. She maintains an active lifestyle, achieving approximately 10,000 steps daily at work. There is a consideration of perimenopausal symptoms, which may impact her weight loss efforts. Review of Systems - Cardiovascular: Denies chest pain, ort hopnea, or syncope. - Respiratory: Denies dyspnea, cough, or wheezing. - Neurological: Denies dizziness or head aches. Plan 1. White Coat Syndrome The patient will continue to monitor her blood pressure at home, as she reports normal readings outside of clinical settings. 2. Perimenopausal Symptoms The patient is advised to continue monitoring her symptoms, as they may affect her weight management efforts. 3. Preventative Care: Weight Management The patient is encouraged to maintain her dietary adjustments and active lifestyle to support further weight loss. Discussion Notes During the visit, we discussed the patient's blood pressure management, emphasizing the importance of home monitoring due to her history of white coat syndrome. We also addressed her weight management progress and the potential impact of perimenopausal symptoms on her efforts. Patient Instructions - Continue monitoring blood pressure at home and report any significant changes. - Maintain dietary adjustments and physi vivian activity to support weight loss. - Monitor perimenopausal symptoms and di scuss any concerns during the next visit. [facility] Medical History Psoriasis Surgical History Hx of tonsillectomy Hx of wisdom tooth extraction Family History Father Substance use disorder Mental health disorder Maternal Aunt Ovarian cancer Social History Housing: Condominium Patient Tobacco Use Status: Never used Tobacco e-Cigarette/Vaping Use: Never Used Second Hand Smoke Exposure: No service: No Current occupational status: employed Current occupation: [employer] Current occupational exposures/hazards: No Cognitive needs: No Hearing needs: No Vision needs: No Questionnaire Thrive Questionnaire Date Thrive assessed: 08/25/25 I am a: Patient What is your living situation today?: I have a steady place to live Within the past 12 months, did the food you bought not last and you didn't have the money to get more?: I choose not to answer this question Within the past 12 months, did you worry whether your food would run out before you got money to buy more?: I choose not to answer this question Do you have trouble paying for medicines?: No Do you have trouble getting transportation to medical appointments?: No Do you have trouble paying your heating and electricity bill?: No Do you have trouble taking care of your child, family member or friend?: No Do you have trouble with day-to-day activities such as bathing, preparing meals, shopping, managing finances, etc.?: No Are you currently unemployed and looking for a job?: No Are you interested in more education?: I choose not to answer this question THRIVE Score: 0 UCHE-7 AMB Questionnaire UCHE-7 Date UCHE - 7 assessed: 11/23/23 Source: Developed by Drs. Sandoval Go, Evelyn Owen, Andrew Mott and colleagues, with an educational carri from [employer]. Physical exam (Primary Care) Tobacco/Smoking Status: Tobacco use Status Tobacco use date assessed 11/23/23 02/27/24 14:03 Patient Tobacco Use Status Never used Tobacco 08/28/25 15:19 e-Cigarette/Vaping Use Never Used 02/27/24 14:03 Thrive Assessment: Date of Thrive Assessment Date Thrive assessed 08/25/25 08/25/25 14:37 Telehealth Telehealth Telehealth Platform: [employer] Location of provider rendering services: practice address Location of patient: address on file Patient Identification confirmed using: Name, : Yes Telehealth method: video Patient verbally consented to treatment: Yes Patient verbally consented to billing insurance company: Yes Patient informed of any privacy concerns related to visit: Yes Minutes spent on Phone/Video with Pt.: 13 Coding Level of Care Code Tele Est Pt Level 3 (72502) Diagnoses Elevated blood pressure reading without diagnosis of hypertension R03.0 Assessment & Plan Assessment & Plan (1) Elevated blood pressure reading without diagnosis of hypertension: Code(s): R03.0 - Elevated blood-pressure reading, without diagnosis of hypertension Category: Medical Plan . Orders: Orders MM screening mammo BI Today Z12.31 - Encounter for screening mammogram for malignant neoplasm of breast Referrals Gastroenterology Referral R03.0 - Elevated blood-pressure reading, without diagnosis of hypertension
== END 2025-08-29 08:43 | disposition home or self-care (01) ==
LOC: HO.HMCC 06:37
PROVIDERS: PCP Nurse Practitioner Family; Visit Provider Nurse Practitioner Family
DX: R03.0 Elevated blood-pressure reading, without diagnosis of hypertension (principal)

== ENCOUNTER 2025-08-31 10:43 | Outpatient (REF) | payer BC, SELFPAY ==
--- OUTSIDE RECORDS SUMMARY | 2025-08-31 10:46 | XMS_ITS | Clinical Summary ---
Author Organization [facility] Address [address] [facility] [address] [place] [phone] Phone Care Team Providers Care Structures Mechanic Name Role Phone Anuja Meeks MD Primary Care Provider [phone] Medications No known medications Active Problems No [...] topic Medical Devices Not on file Insurance [facility] [place] [address] [place] [address] [facility] Care Teams Structures Mechanic Relationship Specialty Start Date End Date Anuja Meeks MD [address] [facility] [address] [place] [phone] PCP - General Internal Medicine 04/14/23 Additional Source Comments The information contained in this document represents components of the legal health record. It is not the complete legal health record.[facility]
[2025-08-31 14:01] LABS: Alanine Aminotransferase 15 U/L (0-31); Albumin Level 4.2 g/dL (3.5-5.0); Alkaline Phosphatase 50 U/L (39-117); Anion Gap 13 (12-20); Aspartate Amino Transferase 17 U/L (5-31); Blood Urea Nitrogen 18 mg/dL (9-16); Calcium 8.6 mg/dL (8.4-10.2); Carbon Dioxide 25 mmol/L (22-29); Chloride 107 mmol/L (96-108); Cholesterol 175 mg/dL (<200); Estimated Glomerular Filt Rate > 60; HDL Cholesterol 59 mg/dL (>40); Potassium 3.5 mmol/L (3.3-5.1); Sodium 141 mmol/L (135-145); Total Protein 6.6 g/dL (6.5-8.0); Triglycerides 88 mg/dL (<150)
== END 2025-08-31 10:44 | disposition home or self-care (01) ==
LOC: HO.HMGCLDS 10:43
PROVIDERS: PCP Nurse Practitioner Family; Visit Provider Nurse Practitioner Family
DX: Z00.00 Encounter for general adult medical examination without abnormal findings (principal); Z13.6 Encounter for screening for cardiovascular disorders
CPT/HCPCS: 36415; 80053; 80061

== ENCOUNTER 2025-09-05 15:01 | Outpatient (AMB) | payer BC, SELFPAY ==
--- NOTE | 2025-09-05 14:46 | A.OFFPC_ITS ---
Vital Signs 09/05/25 15:06 Height 5 ft 5 in Weight 248 lb BMI 41.3 BP 150/90 H Blood Pressure Location Rt brachial Position Sitting Pulse 64 Pulse Source Pulse Oximeter Temp 98.0 F Temp Source Oral Pulse Oximetry (%) 97 Intake Visit Reasons: PE Allergies doxycycline Adverse Reaction (Mild, Verified 09/05/25 15:06) Nausea Tobacco use date assessed: 09/05/25 Dental Screening Dental Screen Date: 09/05/25 Did you have a dental visit in the last 12 months?: Yes Did you have a dental problem in the last 6 months where you did not have access to dental care?: No Was dental information given to patient?: Patient has dentist HPI HPI Comments History of Present Illness Details History of Present Illness - The patient is a 50-year-old female pr esenting with hypertension, perimenopausal symptoms, and weight management concerns. - Hypertension: The patient reports elev ated blood pressure readings during medical visits, attributed to white coat syndrome, with home readings being lower. Checks on her bosses BP cuff and usually 130's systolic during stressful times. - Perimenopausal symptoms: The patient r eports irregular menstrual cycles, with periods of amenorrhea followed by heavy bleeding. She experiences mood swings, fatigue, and joint pain, which she attributes to hormonal changes. 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 - Obesity: The patient has been unable t o lose weight despite dietary modifications and increased physical activity. She has a family history of obesity-related conditions, including diabetes and heart disease. Is questioning GLP-1 medications. - Psoriasis and Eczema: The patient expe riences intermittent flares of psoriasis and eczema, particularly on the scalp and hands. She manages these conditions with topical treatments and dietary modifications to avoid triggers. She used to see Derm for it but they closed. Used clobetasol cream on her hands and other locations and used clobetasol scalp solution on her scalp which worked well but she is out of both medications and is looking for refills. She used both items sparingly and the old prescriptions . Has frequent flares which affect her life. - Reviewed labs with patient, all were w ithin normal limits. - Advised she is overdue for colonoscopy as the guidelines has have changed recently, referral has been sent. - Also advised she needs to get a mammog gavin as she has never had one so a referral has been sent for that as well Review of Systems - Cardiovascular: Reports elevated blood pressure during medical visits. Denies chest pain or palpitations. - Endocrine: Reports irregular menstrual cycles and weight gain. Denies thyroid dysfunction. - Dermatological: Reports intermittent f xavier of psoriasis and eczema. Denies other skin changes. - Musculoskeletal: Reports joint pain an d fatigue. Denies muscle weakness. - Neurological: Denies headaches, dizzin ess, or balance issues. All systems reviewed and are unremarkable except as noted in HPI Physical Exam General: Cooperative, healthy appearing, comfortable, no acute distress and well developed Orientation: Patient oriented x3 Limitations: No limitations Head: Normal to inspection Ears: Hearing grossly normal bilaterally, TM's normal bilaterally Nose: Normal External nose present Face and sinus: Normal facial exam Mouth: moist mucus membranes, posterior oropharynx normal appearing Eyes: Appearance normal, both eyes and all related structures Neck: Normal visual inspection and Yes full ROM Respiratory: Normal respiratory effort and able to speak in complete sentences. Clear to auscultation throughout, no wheezes, rales and rhonchi. Cardiac: Regular rate and rhythm, Normal S1 and S2, no murmurs, rubs or gallops Abdominal: obese, soft, normoactive bowel sounds, no TTP throughout Skin: No rashes or lesions noted Neuro: Patient oriented x3, gait normal, sensation intact UE and LE, 5/5 strength UE and LE, winderman strength 5/5 equal and bilaterally Extremities: Normal to inspection [facility] Medical History (Updated 09/05/25 @ 15:52 by Amnada Feng PA-C) Psoriasis Surgical History Hx of tonsillectomy Hx of wisdom tooth extraction Family History (Updated 09/05/25 @ 16:21 by Amanda Feng PA-C) Father Substance use disorder Mental health disorder Diabetes Maternal Aunt Ovarian cancer Social History Housing: Condominium Patient Tobacco Use Status: Never used Tobacco e-Cigarette/Vaping Use: Never Used Second Hand Smoke Exposure: No service: No Current occupational status: employed Current occupation: [employer] Current occupational exposures/hazards: No Cognitive needs: No Hearing needs: No Vision needs: No Questionnaire PHQ-9 Over the last 2 weeks, how often have you been bothered by any of the following problems? 1. Little interest or pleasure in doing things: not at all 2. Feeling down, depressed, or hopeless: not at all 3. Trouble falling or staying asleep, or sleeping too much: not at all 4. Feeling tired or having little energy: not at all 5. Poor appetite or overeating: not at all 6. Feeling bad about yourself - or that you are a failure or have let yourself or your family down: not at all 7. Trouble concentrating on things, such as reading the newspaper or watching television: not at all 8. Moving or speaking so slowly that other people could have noticed. Or the opposite - being so fidgety or restless that you have been moving around a lot more than usual: not at all 9. Thoughts that you would be better off or of hurting yourself in some way: not at all Total score: 0 Depression Screening Interpretation: Negative Depression Screening Done: Yes 15890 - PHQ-9 Billing: Yes Source: Developed by Drs. Sandoval Go, Evelyn Owen, Andrew Mott and colleagues, with an educational carri from [employer]. Thrive Questionnaire Date Thrive assessed: 08/25/25 I am a: Patient What is your living situation today?: I have a steady place to live Within the past 12 months, did the food you bought not last and you didn't have the money to get more?: I choose not to answer this question Within the past 12 months, did you worry whether your food would run out before you got money to buy more?: I choose not to answer this question Do you have trouble paying for medicines?: No Do you have trouble getting transportation to medical appointments?: No Do you have trouble paying your heating and electricity bill?: No Do you have trouble taking care of your child, family member or friend?: No Do you have trouble with day-to-day activities such as bathing, preparing meals, shopping, managing finances, etc.?: No Are you currently unemployed and looking for a job?: No Are you interested in more education?: I choose not to answer this question Please select the resources that you would like help with: None Currently or been in a relationship where the following occur: No concerns reported THRIVE Score: 0 AUDIT C Alcohol Use Questionnaire (AUDIT-C) 1. How often do you have a drink containing alcohol?: 2-4 times a month 2. How many drinks containing alcohol do you have on a typical day when you are drinking?: 1 or 2 3. How often do you have six or more drinks on one occasion?: Never Total Score: 2 Score Reviewed/Action Taken: Yes UCHE-7 AMB Questionnaire UCHE-7 Date UCHE - 7 assessed: 09/05/25 Feeling nervous, anxious, or on edge: 0 = Not at all Not being able to stop or control worryin = Not at all Worrying too much about different things: 0 = Not at all Trouble relaxin = Not at all Being so restless that it is hard to sit still: 0 = Not at all Becoming easily annoyed or irritable: 0 = Not at all Feeling afraid as if something awful might happen: 0 = Not at all Total UCHE-7 score (0-4 normal; 5-9 mild; 10-14 moderate; 15-21 severe): 0 Source: Developed by Drs. Sandoval Go, Evelyn Owen, Andrew Mott and colleagues, with an educational carri from [employer]. UCHE-7 Assessment Billing UCHE-7 Assessment Tool: UCHE-7 Assessment 28299 Review of Systems Const All systems reviewed & are unremarkable except as noted in HPI and below Physical exam (Primary Care) Vital Signs: Last Vital Signs Temp 98.0 F 09/05/25 15:06 Pulse 64 09/05/25 15:06 BP 150/90 H 09/05/25 15:06 Pulse Ox 97 09/05/25 15:06 BMI result Body Mass Index 41.3 Tobacco/Smoking Status: Tobacco use Status Tobacco use date assessed 09/05/25 09/05/25 15:08 Patient Tobacco Use Status Never used Tobacco 09/05/25 14:49 e-Cigarette/Vaping Use Never Used 09/05/25 14:49 PHQ-9: PHQ-9 Score PHQ-9: Total score 0 09/05/25 15:08 Depression Screening Interpretation: Negative Thrive Assessment: Date of Thrive Assessment Date Thrive assessed 08/25/25 09/05/25 14:49 Currently or been in a relationship where the following occur: No concerns reported Results AMB Hemoglobin A1c AMB Hemoglobin A1c 4.8 % Last Edit by Shante Moreau MA on 09/05/25 15:57 Coding Level of Care Code Est Pt Prev Care 40-64y(27876) Diagnoses Psoriasis L40.9 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 Obesity, Class III, BMI 40-49.9 (morbid obesity) E66.01 Physical exam, annual Z00.00 Additional Codes UCHE-7 Assessment Billing - UCHE-7 Assessment Tool: UCHE-7 Assessment 85448 ([id number]) PHQ-9 - 10761 - PHQ-9 Billing: Yes ([id number]) Assessment & Plan Assessment & Plan (1) Psoriasis: Code(s): L40.9 - Psoriasis, unspecified Category: Medical Plan: as below (2) Scalp psoriasis: Code(s): L40.9 - Psoriasis, unspecified Category: Medical Plan: as below (3) Obesity, Class III, BMI 40-49.9 (morbid obesity): Code(s): E66.01 - Morbid (severe) obesity due to excess calories Category: Medical Plan: as below (4) Physical exam, annual: Code(s): Z00.00 - Encounter for general adult medical examination without abnormal findings Category: Medical Plan: Assessment and Plan 1. Elevated blood pressure - likely secondary to white coat syndrome - Monitor blood pressure at home and consider lifestyle modifications to manage stress and diet. If you notice her blood pressures are routinely elevated over the limits we discussed, please reach out to Jose Mayberry NP for further management 2. Perimenopausal symptoms - Consider hormone replacement therapy. Discuss with Ce Garcia CNM in gynecology for management. 3. Obesity - Discuss potential for GLP-1 agonist therapy pending insurance approval. Patient will call her insurance co and see what they will cover for her diagnoses. - Encourage continued dietary management and physical activity. - A1c today is 4.8% 4. Psoriasis and Eczema - Prescribe clobetasol solution for scalp and topical cream for skin flares. - Advise on dietary triggers and stress management. 5. Preventative care - Ensure completion of colonoscopy and mammogram screenings. Patient was informed and verbally consented to the use of an ambient scribe for clinic note documentation during this visit. Orders: Orders AMB Hemoglobin A1c Today Z13.9 - Encounter for screening, unspecified Referrals Gastroenterology Referral Z12.11 - Encounter for screening for malignant neoplasm of colon Medications: New clobetasol 0.05% 1 appl topical BEDTIME 50 mL 2RF 1 week L40.9 - Psoriasis, unspecified clobetasol 0.05% Do not use on hands face or genitals. Please wash your hands after applying this medication or use gloves 1 appl topical BID 30 grams 0RF 1 week L40.9 - Psoriasis, unspecified
[2025-09-05 15:06] VITALS: BP 150/90; PULSE 64; TEMP 36.7; O2SAT 97; BMI 41.3
--- OUTSIDE RECORDS SUMMARY | 2025-09-05 18:54 | XMS_ITS | Clinical Summary ---
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 It is not the complete legal health record.[facility]
== END 2025-09-05 15:56 | disposition home or self-care (01) ==
PROVIDERS: PCP Nurse Practitioner Family; Visit Provider Physician Assistant
DX: Z00.00 Encounter for general adult medical examination without abnormal findings (principal); E66.01 Morbid (severe) obesity due to excess calories; Z68.41 Body mass index [BMI] 40.0-44.9, adult; L40.9 Psoriasis, unspecified; Z13.9 Encounter for screening, unspecified

== ENCOUNTER → 2025-09-05 15:01 | Outpatient (BNVA) | payer BC, SELFPAY | PROVIDERS: PCP Nurse Practitioner Family; Visit Provider Physician Assistant | DX: Z00.00 Encounter for general adult medical examination without abnormal findings (principal); I10 Essential (primary) hypertension; L40.9 Psoriasis, unspecified; L30.9 Dermatitis, unspecified; E66.01 Morbid (severe) obesity due to excess calories; N95.8 Other specified menopausal and perimenopausal disorders; Z68.41 Body mass index [BMI] 40.0-44.9, adult; Z83.3 Family history of diabetes mellitus | CPT/HCPCS: 83036; 96127 ==